=== PATIENT | female | born 1995 | race Caucasian/White ===

== ENCOUNTER 2019-08-13 02:26 | Emergency (ER) | payer SELFPAY ==
[~2019-08-13] VITALS: Ht 167.6 cm; Wt 51.3 kg
[2019-08-13] MEDS ORDERED: ONDANSETRON HCL/PF 4 MG/2 ML VIAL ONE ×2 (02:57→05:25)
[2019-08-13] MEDS ORDERED: MORPHINE SULFATE INJ 4 MG/ML DISP.SYRIN ONE ×2 (02:58→03:46)
[2019-08-13] MEDS ORDERED: MORPHINE SULFATE INJ 2 MG/ML DISP.SYRIN IV ONE (03:00)
[2019-08-13] MEDS ORDERED: IV NS 0.9% 1,000 ML BAG IV ONE (03:00)
[2019-08-13] MEDS ORDERED: ONDANSETRON HCL/PF 4 MG/2 ML VIAL IVP ONE (03:00)
[2019-08-13 03:04] LABS: APPEARANCE,URINE Slightly Cloudy (CLEAR); BILIRUBIN,URINE SMALL (NEGATIVE); BLOOD, URINE Negative Ery/uL (NEGATIVE); COLOR,URINE Yellow (YELLOW); KETONES,URINE 40 (NEGATIVE); LEUKOCYTE ESTERASE ,URINE Negative (NEGATIVE); NITRITE, URINE Negative (NEGATIVE); PH,URINE 5.5 (5.0-8.0); PROTEIN,URINE Negative (NEGATIVE); UGLUCOSE Negative (NEGATIVE); UROBILINOGEN,URINE 0.2 EU/dL (0.2)
[2019-08-13 03:09] LABS: BASOPHILS # (AUTO) 0.1 /CMM (0.0-0.2); BASOPHILS % (AUTO) 1.1 % (0.0-2.0); EOSINOPHILS % (AUTO) 1.6 % (0.0-6.0); HEMATOCRIT 41 % (33-45); HEMOGLOBIN 14.4 g/dL (11.5-14.8); LYMPHOCYTES # (AUTO) 2.7 /CMM (0.8-4.8); LYMPHOCYTES % (AUTO) 24.7 % (20.0-44.0); MEAN CORPUSCULAR HGB CONC 35 g/dl (31.0-36.0); MEAN CORPUSCULAR VOLUME 86 fL (82-100); MONOCYTES # (AUTO) 0.8 /CMM (0.1-1.30); MONOCYTES % (AUTO) 7.7 % (2.0-12.0); NEUTROPHILS % (AUTO) 64.9 % (43.0-81.0); PLATELET COUNT (AUTO) 294 /CMM (150-450); RED BLOOD CELL COUNT(AUTO) 4.81 MIL/uL (4.0-5.2); WHITE BLOOD COUNT (AUTO) 10.9 K/uL (4.3-11.0)
[2019-08-13 03:14] LABS: CALCIUM, SERUM 9.2 mg/dL (8.5-10.1); CREATININE 0.7 mg/dL (0.6-1.3); POTASSIUM 3.1 mmol/L (3.5-5.1)
[2019-08-13 03:18] LABS: ALBUMIN 4.4 g/dL (3.4-5.0); BILIRUBIN,DIRECT 0.3 mg/dL (0.0-0.2); BILIRUBIN,TOTAL 2.2 mg/dL (0.2-1.0); TOTAL PROTEIN, SERUM 7.7 g/dL (6.4-8.2)
--- NOTE | 2019-08-13 03:21 | NUR ---
BIBSELF FROM HOME. TO ER BED 10. AAOX4. NO RESP DISTRESS NOTED. AMBULATORY. C/O RLQ ABDOMINAL PAIN SINCE YESTERDAY WORST TODAY. PT REPORTS PAIN 9/10 SHARP THROBBING INTERMITENT PAIN. PT ALSO REPORTS NAUSEA. PT IS AFEBRILE. MD WAS AT BEDSIDE FOR EVAL. ORDERS RECEIVED, NOTED AND CARRIED OUT. IV LINE OBTAINED ON R AC 20G. BLOOD DRAWN AND GIVEN TO PARK RECREATION MANAGER AT BEDSIDE. URINE SENT TO LAB. WILL CONTINUE TO MIHNITOR PT
[2019-08-13 03:48] LABS: BACTERIA,URINE Few /HPF (None Seen); RBC,URINE 0-2 /HPF (0-2); SQUAMOUS EPITHELIAL CELL,UR Few /HPF (None Seen)
--- NOTE | 2019-08-13 03:53 | NUR ---
PT WENT TO THE BATHROOM WITH ASSISTANCE FROM FOUNDRY PROCESS ENGINEER. PT AMBULATED WITH ASSIST BUT WHEN SHE GOT TO THE BATHROOM SHE WENT IN BY HERSELF AND HAVE THE FOUNDRY PROCESS ENGINEER STAY OUTSIDE. PT THEN CALLED FOR HELPED, FOUNDRY PROCESS ENGINEER CALLED ME TO SCENE. PT WAS SITTING ON THE FLOOR AGAINST THE WALL. ACCORDING TO PT, SHE FELT DIZZY AND FELL. SHE REPORTED THAT SHE HIT HER HEAD AGAISNT THE WALL. PT WAS ASSISTED BACK TO BED, AMBULATED FROM BATHROOM TO [facility] WITH ASSIST. MADE AWARE. Addendum: 08/13/19 at 0625 by SONAL NO NEURO DEFICIT NOTED.
--- NOTE | 2019-08-13 04:05 | NUR ---
PT REPORTS THE SHE IS STARTING TO HAVE A BUMP ON HER HEAD. NOTED A BUMP ON THE R PARIETAL AREA. MD MADE AWARE. SHE DENIES TO HAVE A SCAN AT THIS TIME
[2019-08-13] MEDS ORDERED: KETOROLAC TROMETHAMINE INJ 30 MG/ML VIAL ONE (05:25)
[2019-08-13] MEDS ORDERED: KETOROLAC TROMETHAMINE INJ 30 MG/ML VIAL IV ONE (05:30)
[2019-08-13] MEDS ORDERED: MORPHINE SULFATE INJ 10 MG/ML DISP.SYRIN IV ONE (05:30)
[2019-08-13] MEDS ORDERED: ONDANSETRON HCL/PF - ER 4 MG/2 ML VIAL IV ONE (05:30)
--- NOTE | 2019-08-13 07:30 | NUR ---
Patient discharged to home in stable condition. Written and verbal after care instructions given. Patient verbalizes understanding of instruction.IV removed. Catheter intact and site benign. Pressure and 4x4 applied to site. No bleeding noted. Pt ambulatory with a steady gait
[2019-08-13 07:32] VITALS: BP 109/73
== END 2019-08-13 07:33 | disposition home or self-care (01) ==
LOC: ER 02:29
DX: S09.8XXA Other specified injuries of head, initial encounter (principal); N39.0 Urinary tract infection, site not specified; R42 Dizziness and giddiness; Z85.43 Personal history of malignant neoplasm of ovary; W01.0XXA Fall on same level from slipping, tripping and stumbling without subsequent striking against object, initial encounter; Y93.89 Activity, other specified; Y92.002 Bathroom of unspecified non-institutional (private) residence as the place of occurrence of the external cause; Y99.8 Other external cause status
CPT/HCPCS: 36415; 70450; 74176; 80048; 80076; 81001; 83690; 84703; 85025; 87086; 96361; 96374; 96375; 96376; 99284; J1885; J2270 ×2; J2405 ×2; J7030; 81000-TC

== ENCOUNTER 2019-08-29 11:27 | Emergency (ER) | payer SELFPAY ==
[~2019-08-29] VITALS: Ht 167.6 cm; Wt 77.1 kg
--- NOTE | 2019-08-29 12:47 | NUR ---
RLQ ABDOMINAL PAIN W/ N/V/D SINCE LAST NIGHT. PT AAOX4, VSS. RR EVEN & UNLABORED. DENIES CP, SOB, DIZZINESS, WEAKNESS @ THIS TIME. PT SEEN & YURIDIA ALVARENGA. WILL CONT TO MONITOR.
[2019-08-29 12:51] LABS: BASOPHILS # (AUTO) 0.1 /CMM (0.0-0.2); BASOPHILS % (AUTO) 0.6 % (0.0-2.0); EOSINOPHILS % (AUTO) 1.2 % (0.0-6.0); HEMATOCRIT 42 % (33-45); HEMOGLOBIN 14.4 g/dL (11.5-14.8); LYMPHOCYTES # (AUTO) 1.5 /CMM (0.8-4.8); LYMPHOCYTES % (AUTO) 17.9 % (20.0-44.0); MEAN CORPUSCULAR HGB CONC 34 g/dl (31.0-36.0); MEAN CORPUSCULAR VOLUME 86 fL (82-100); MONOCYTES # (AUTO) 0.5 /CMM (0.1-1.30); MONOCYTES % (AUTO) 5.6 % (2.0-12.0); NEUTROPHILS # (AUTO) 6.1 /CMM (1.8-8.9); NEUTROPHILS % (AUTO) 74.7 % (43.0-81.0); PLATELET COUNT (AUTO) 362 /CMM (150-450); RED BLOOD CELL COUNT(AUTO) 4.89 MIL/uL (4.0-5.2); WHITE BLOOD COUNT (AUTO) 8.2 K/uL (4.3-11.0)
[2019-08-29 12:54] LABS: APPEARANCE,URINE Slightly Cloudy (CLEAR); BILIRUBIN,URINE Negative (NEGATIVE); BLOOD, URINE Negative Ery/uL (NEGATIVE); COLOR,URINE Dark (YELLOW); KETONES,URINE Negative (NEGATIVE); LEUKOCYTE ESTERASE ,URINE Negative (NEGATIVE); NITRITE, URINE Negative (NEGATIVE); PH,URINE 5.5 (5.0-8.0); PROTEIN,URINE Negative (NEGATIVE); UGLUCOSE Negative (NEGATIVE); UROBILINOGEN,URINE 0.2 EU/dL (0.2)
[2019-08-29 13:00] LABS: CALCIUM, SERUM 9.5 mg/dL (8.5-10.1); CREATININE 0.7 mg/dL (0.6-1.3); POTASSIUM 4.1 mmol/L (3.5-5.1)
[2019-08-29 13:06] LABS: ALBUMIN 4.2 g/dL (3.4-5.0); BILIRUBIN,DIRECT 0.2 mg/dL (0.0-0.2); BILIRUBIN,TOTAL 1.1 mg/dL (0.2-1.0); TOTAL PROTEIN, SERUM 7.9 g/dL (6.4-8.2)
[2019-08-29] MEDS ORDERED: ONDANSETRON HCL/PF 4 MG/2 ML VIAL ONE (13:06)
[2019-08-29] MEDS ORDERED: KETOROLAC TROMETHAMINE INJ 30 MG/ML VIAL ONE (13:06)
[2019-08-29] MEDS: ONDANSETRON HCL/PF 4 MG/2 ML VIAL IVP ONE (13:12)
[2019-08-29] MEDS: KETOROLAC TROMETHAMINE INJ 30 MG/ML VIAL IV ONE (13:13)
[2019-08-29] MEDS: IV NS 0.9% 1,000 ML BAG IV ONE (13:13)
--- NOTE | 2019-08-29 13:14 | NUR ---
MEDICATED ORDERED, PT GENARO WELL.
[2019-08-29] MEDS ORDERED: HYDROMORPHONE 1 MG/1 ML DISP.SYRIN ONE (14:08)
[2019-08-29] MEDS: HYDROMORPHONE 1 MG/1 ML DISP.SYRIN IV ONE (14:11)
[2019-08-29] MEDS ORDERED: CT SWABBABLE VALVE TRANS SET 1 EA INFUS.SET MC ONE (14:38)
[2019-08-29] MEDS ORDERED: IOHEXOL-300 100 ML VIAL IV ONE (14:38)
[2019-08-29] MEDS ORDERED: IV NS 0.9% 250 ML IV ONE (14:39)
[2019-08-29] MEDS ORDERED: LORAZEPAM INJ 2 MG/ML VIAL ONE (14:52)
[2019-08-29] MEDS: LORAZEPAM INJ 2 MG/ML VIAL IV ONE (15:02)
[2019-08-29 15:24] LABS: ALCOHOL, BLOOD < 3 mg/dL (0-0)
[2019-08-29 15:26] LABS: ACETAMINOPHEN 0 ug/ml (10-30); SALICYLATE < 0.2 mg/dL (2.8-20.0)
--- NOTE | 2019-08-29 17:20 | NUR ---
[employer] @ BS.
--- NOTE | 2019-08-29 19:30 | NUR ---
Patient discharged to home in stable condition. Written and verbal after care instructions given. Patient verbalizes understanding of instruction. IV removed. Catheter intact and site benign. Pressure and 4x4 applied to site. No bleeding noted.
[2019-08-29 20:48] VITALS: BP 120/84
== END 2019-08-29 19:30 ==
LOC: ER 11:27
DX: C56.2 Malignant neoplasm of left ovary (principal); C56.1 Malignant neoplasm of right ovary; R11.2 Nausea with vomiting, unspecified; R19.7 Diarrhea, unspecified; R10.31 Right lower quadrant pain; E86.0 Dehydration; R56.9 Unspecified convulsions; Z76.5 Malingerer [conscious simulation]
CPT/HCPCS: 36415; 74177; 76700; 80048; 80076; 80305; 80307; 80329; 81001; 84146; 84703; 85025; 96361; 96374; 96375; 99284; G0480; J1170; J1885; J2060; J2405; J7030; J7050; Q9967; 81000-TC